=== PATIENT | male | born 1935 | race Caucasian/White ===

== ENCOUNTER 2017-02-13 14:20 | Inpatient (IN) | payer MEDICARE ==
[~2017-02-13] VITALS: Ht 188 cm; Wt 109.4 kg
[2017-02-13] MEDS ORDERED: IV NORMAL SALINE 1,000ML 1,000 ML IV SCH (14:39)
[2017-02-13 15:06] LABS: BASO # 0.1 x10^3/uL (0.0-0.2); BASO % 1 % (0-3); EOS % 0 % (0-3); HEMATOCRIT 42.2 % (39.0-53.0); HEMOGLOBIN 14.6 g/dL (13.0-17.5); LYMPH # 0.5 x10^3/uL (1.0-4.8); LYMPH % 4 % (24-48); MEAN CORPUSCULAR HEMOGLOBIN 34 pg (25-35); MEAN CORPUSCULAR HGB CONC 35 g/dL (31-37); MEAN CORPUSCULAR VOLUME 97 fL (79-100); MONO # 0.4 x10^3/uL (0.0-1.1); MONO % 3 % (0-9); NEUT # 12.9 x10^3uL (1.8-7.7); NEUT % 93 % (31-73); PLATELET COUNT 177 x10^3/uL (140-400); RED BLOOD COUNT 4.35 x10^6/uL (4.30-5.70); RED CELL DISTRIBUTION WIDTH 13.4 % (11.5-14.5); WHITE BLOOD COUNT 13.9 x10^3/uL (4.0-11.0)
--- NOTE | 2017-02-13 15:11 | RAD ---
Exam performed: 2 views chest. History: Hypoxia, fever and chills with weakness. Date of service: 02/13/17. Comparison: None available PA and lateral views chest findings: Heart size and mediastinal silhouette is within limits of normal. Pulmonary vascularity is unremarkable. There is fullness in the left hilar region probably prominent pulmonary artery or lymph node. Scattered infiltrates are seen in the left mid and right lower lung. No pleural effusion or pneumothorax. Impression: Scattered bilateral infiltrates. Follow-up exams may be obtained to complete resolution Fullness in the left hilar region may be related to prominent pulmonary artery or hilar lymph nodes/mass. Evaluation with CT of chest with contrast may be of additional benefit.
[2017-02-13] MEDS ORDERED: cefTRIAXone SODIUM 1 GM VIAL IV ONE (15:13)
[2017-02-13] MEDS ORDERED: IV NORMAL SALINE 50ML 50 ML ONE (15:13)
[2017-02-13] MEDS ORDERED: ONDANSETRON PF 4 MG/2 ML VIAL. IV ONE (15:20)
[2017-02-13] MEDS ORDERED: IPRATRPIUM/ALBUTEROL 0.5/2.5MG 3 ML NEBU. NEB ONE (15:20)
[2017-02-13] MEDS ORDERED: methylPREDNISolone SOD SUCC PF 125 MG/2 ML VIAL. IV ONE (15:20)
[2017-02-13] MEDS ORDERED: ACETAMINOPHEN 325 MG TABLET PO ONE (15:20)
[2017-02-13 15:26] LABS: ALBUMIN 3.7 g/dL (3.4-5.0); CALCIUM 8.8 mg/dL (8.5-10.1); DIRECT BILIRUBIN 0.3 mg/dL (0.0-0.2); GFR 72.1; POTASSIUM 4.2 mmol/L (3.5-5.1); TOTAL BILIRUBIN 0.8 mg/dL (0.2-1.0); TOTAL PROTEIN 7.2 g/dL (6.4-8.2)
[2017-02-13 15:29] LABS: BILIRUBIN,URINE NEG (NEG); CLARITY,URINE CLOUDY; COLOR,URINE YELLOW; GLUCOSE,URINE NEG (NEG)
[2017-02-13 15:30] LABS: BACTERIA,URINE MOD /HPF (0-FEW); NITRITE,URINE NEG (NEG); SQUAMOUS EPITHELIAL CELL,UR FEW /LPF; UROBILINOGEN,URINE 0.2 mg/dL (0.2 mg/dL); WBC,URINE >40 /HPF (0-4)
[2017-02-13] MEDS: IV NORMAL SALINE 1,000ML 1,000 ML IV SCH ×3 (15:56→23:48)
[2017-02-13] MEDS ORDERED: ACETAMINOPHEN 325 MG TABLET PO PRN (16:00)
[2017-02-13] MEDS: IPRATRPIUM/ALBUTEROL 0.5/2.5MG 3 ML NEBU. NEB SCH ×2 (16:00→19:31)
[2017-02-13] MEDS ORDERED: ONDANSETRON PF 4 MG/2 ML VIAL. IV PRN (16:00)
[2017-02-13] MEDS ORDERED: AZITHROMYCIN 500 MG in IV NORMAL SALINE 250ML 250 ML IV ONE (16:00)
[2017-02-13] MEDS ORDERED: IV NORMAL SALINE 250ML 250 ML ONE (16:02)
[2017-02-13] MEDS ORDERED: AZITHROMYCIN 500 MG VIAL. IV ONE (16:03)
--- NOTE | 2017-02-13 16:19 | PHYS DOC ---
General Chief Complaint: FLU SYMPTOM Stated Complaint: FLU SYMPTOMS Time Seen by MD: 14:39 Source: patient, EMS Exam Limitations: no limitations Problems: History of Present Illness Initial Comments Pt is 81/M to ED via EMS for fever/hypoxia. Pt states he's had a persistent dry cough for 2 months. Yesterday he developed dysuria, he's had decreased urination today. His called EMS today because he was weak, having chills, and appeared to be unsteady. EMS reports pt 86% RA when they arrived, improved to 92% on 3L NC. Pt denies CP, n/v, TRIMBLE, new leg swelling, focal neurologic deficit. ED VS: 100.5, 125, 20, 170/67, 92% 3L O2 NC. Timing/Duration: getting worse, changing over time, other Severity: severe Modifying Factors: worse with movement, improves with other Associated Symptoms: cough, diaphoresis, fever/chills, malaise, shortness of breath, weakness Allergies: Coded Allergies: No Known Drug Allergies (Unverified , 02/13/17) Past Medical History Medical History: GERD, high cholesterol, hypertension Surgical History: other (groin surgery) Social History Smoker: non-smoker Alcohol: occasionally Drugs: none Review of Systems Constitutional: see HPI EENTM: denies eye pain, denies ear pain, denies nose pain, denies throat pain Respiratory: see HPI Cardiovascular: denies chest pain, denies palpitations, denies syncope Gastrointestinal: denies abdominal pain, denies diarrhea, denies nausea, denies vomiting Genitourinary: see HPI Musculoskeletal: denies back pain, denies joint pain, denies joint swelling, denies muscle stiffness, denies neck pain Psychiatric/Neurological: denies headache, denies numbness, denies paresthesia Hematologic/Lymphatic: denies blood clots, denies easy bleeding, denies easy bruising Physical Exam General Appearance: WD/WN, no apparent distress Ear, Nose, Throat: hearing grossly normal, normal ENT inspection, normal pharynx Neck: non-tender, supple Respiratory: chest non-tender, respiratory distress, rales (scattered bilaterally) Cardiovascular: normal peripheral pulses, tachycardia Gastrointestinal: non tender, soft Back: no CVA tenderness, no vertebral tenderness Extremities: normal range of motion, non-tender, other (2+ pitting LE edema ( pt states it's baseline)) Neurologic/Psychiatric: audio/video technician II-XII nml as tested, no motor/sensory deficits, alert, normal mood/affect, oriented x 3 Skin: normal color, diaphoresis Orders, Labs, Meds EKG: sinus tachycardia 118 bpm, T contour abnormality no STEMI, Interpreted by me. PATIENT: GUERA KIMBROUGH ACCOUNT: [id number] : 1935 LOCATION: ER AGE: 81 SEX: M EXAM STATUS: REG ER ORD. PHYSICIAN: MCKENZIE ALEMAN DO REASON: hypoxia PROCEDURE: CHEST PA & LATERAL Exam performed: 2 views chest. History: Hypoxia, fever and chills with weakness. Date of service: 02/13/17. Comparison: None available PA and lateral views chest findings: Heart size and mediastinal silhouette is within limits of normal. Pulmonary vascularity is unremarkable. There is fullness in the left hilar region probably prominent pulmonary artery or lymph node. Scattered infiltrates are seen in the left mid and right lower lung. No pleural effusion or pneumothorax. Impression: Scattered bilateral infiltrates. Follow-up exams may be obtained to complete resolution Fullness in the left hilar region may be related to prominent pulmonary artery or hilar lymph nodes/mass. Evaluation with CT of chest with contrast may be of additional benefit. DICTATED AND SIGNED BY: BARRNO GALAN MD DATE: 02/13/17 1506 CC: MCKENZIE ALEMAN DO; NGUYỄN MAY MD ~ WBC 13.9, lactic acid 1.8, UA grossly + Pt received duoneb, solumedrol 125mg IV, NS 1L bolus, rocephin 1gIV, zithromax 500mg IV. 1605: Dr Ortiz accepts inpatient telemetry admission for IV hydration/ antibiotics and respiratory support. D-dimer 1.25, CTA chest indicated will complete prior to transfer to inpatient. IMPRESSIONS: Respiratory Distress Multilobar Pneumonia UTI SIRS/Sepsis Elevated d-dimer Departure Disposition: ADMITTED INPATIENT Diagnosis: Resp Distress, Pneumonia, UTI, SIRS/Sepsis Condition: STABLE MCKENZIE ALEMAN DO Feb 13, 2017 16:19
[2017-02-13] MEDS ORDERED: AZITHROMYCIN 500 MG in IV NORMAL SALINE 250ML 250 ML IV SCH (16:30)
[2017-02-13] MEDS ORDERED: IOHEXOL 300 MG/ML 75 ML VIAL. IV ONE (16:30)
--- NOTE | 2017-02-13 17:01 | RAD ---
CT Pulmonary arteriogram: Indication:Tachycardia, abnormal chest x-ray, elevated d-dimer, hypoxia Date of Exam:02/13/17 . Comparison:2 views chest from earlier today Technique: Contiguous helical acquisitions are obtained through the chest during intravenous administration of 75 cc Omnipaque 300 . Coronal and sagittal MIP images were obtained and reviewed. Findings: The pulmonary arteries are fairly well-opacified. Questionable filling defect is seen in the left inferior descending branch (best seen on coronal image 68, series 5). No hilar or mediastinal abnormalities are noted. No pericardial pathology is noted and the aorta appears unremarkable. Prominent interstitial markings are seen in both lung bases with a streaky linear opacity in the right upper lobe probably atelectasis or scarring. The pleural surfaces are smooth and no pleural fluid is seen. Low attenuating abnormality in the right kidney. Impression: 1. Questionable linear filling defect in the descending branch of the right pulmonary artery. If symptoms persist, a follow-up CT angiogram may be obtained. 2. Low attenuating abnormality in the right kidney perhaps a cyst. Evaluation with renal ultrasound may be of additional benefit. 3. Bibasal atelectasis and scarring PQRS Compliance Statement: One or more of the following individualized dose reduction techniques were utilized for this examination: 1. Automated exposure control 2. Adjustment of the mA and/or kV according to patient size 3. Use of iterative reconstruction technique
--- NOTE | 2017-02-13 17:41 | EKG ---
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
[2017-02-13] MEDS: methylPREDNISolone SOD SUCC PF 125 MG/2 ML VIAL. IV SCH ×2 (18:00→23:48)
[2017-02-13 18:16] VITALS: BP 118/76
[2017-02-13 19:15] VITALS: BP 107/68
[2017-02-13] MEDS ORDERED: FLUT9.9S NS (19:56)
[2017-02-13] MEDS ORDERED: LOVA40TA2 PO (19:56)
[2017-02-13] MEDS ORDERED: LISI10TA2 PO (19:56)
[2017-02-13] MEDS ORDERED: LEVO5TAB2 PO (19:56)
[2017-02-13] MEDS ORDERED: ESOM40CA PO (19:56)
[2017-02-13 20:16] LABS: INFLUENZA A PATIENT NEGATIVE (NEGATIVE); INFLUENZA B PATIENT NEGATIVE (NEGATIVE)
[2017-02-13] MEDS: ENOXAPARIN ** NOTE DOSE ** SYRINGE SQ SCH (20:17)
[2017-02-13] MEDS: ATORVASTATIN CALCIUM 10 MG TABLET. PO SCH (20:17)
[2017-02-13 22:45] VITALS: BP 139/78
[2017-02-14] MEDS: IV NORMAL SALINE 1,000ML 1,000 ML IV SCH ×3 (03:13→11:56)
[2017-02-14 03:27] LABS: BASO % 0 % (0-3); EOS # 0.1 x10^3/uL (0.0-0.7); EOS % 0 % (0-3); HEMATOCRIT 38.8 % (39.0-53.0); HEMOGLOBIN 13.4 g/dL (13.0-17.5); LYMPH # 0.8 x10^3/uL (1.0-4.8); LYMPH % 4 % (24-48); MEAN CORPUSCULAR HEMOGLOBIN 34 pg (25-35); MEAN CORPUSCULAR HGB CONC 34 g/dL (31-37); MEAN CORPUSCULAR VOLUME 99 fL (79-100); MONO # 0.3 x10^3/uL (0.0-1.1); MONO % 1 % (0-9); NEUT # 18.9 x10^3uL (1.8-7.7); NEUT % 94 % (31-73); PLATELET COUNT 172 x10^3/uL (140-400); RED BLOOD COUNT 3.93 x10^6/uL (4.30-5.70); RED CELL DISTRIBUTION WIDTH 13.7 % (11.5-14.5); WHITE BLOOD COUNT 20.1 x10^3/uL (4.0-11.0)
[2017-02-14 03:37] LABS: % BANDS 16 % (0-9); % LYMPHS 6 % (24-48); % MONOS 2 % (0-10); % SEGS 76 % (35-66); PLT ESTIMATE ADEQUATE (ADEQUATE)
[2017-02-14 03:39] LABS: CREATININE 1.1 mg/dL (0.7-1.3); GFR 64.6; POTASSIUM 4.2 mmol/L (3.5-5.1)
[2017-02-14] MEDS: methylPREDNISolone SOD SUCC PF 125 MG/2 ML VIAL. IV SCH ×2 (05:39→12:14)
[2017-02-14 05:45] VITALS: BP 135/75
[2017-02-14] MEDS: PANTOPRAZOLE 40 MG TABLET. PO SCH (07:55)
[2017-02-14] MEDS: CETIRIZINE HCL 10 MG TABLET PO SCH (07:56)
[2017-02-14] MEDS: FLUTICASONE 50MCG/NASAL SPRAY 16GM BOTTLE. NS SCH (07:57)
[2017-02-14] MEDS: ENOXAPARIN ** NOTE DOSE ** SYRINGE SQ SCH ×2 (07:57→19:44)
[2017-02-14] MEDS: IPRATRPIUM/ALBUTEROL 0.5/2.5MG 3 ML NEBU. NEB SCH ×2 (08:00→13:09)
[2017-02-14] MEDS ORDERED: FLU VACC QS2017-18 (36MOS+)/PF 0.5 ML SYRINGE. VAX IM ONE (09:00)
[2017-02-14 09:45] VITALS: BP 138/71
[2017-02-14 11:00] VITALS: BP 139/82
[2017-02-14] MEDS ORDERED: LISINOPRIL 10 MG TABLET PO SCH (12:00)
--- NOTE | 2017-02-14 13:52 | HP ---
ADMIT DATE: 02/13/2017 HISTORY OF PRESENT ILLNESS: The patient is a 81-year-old male patient who came to the Emergency Room complaining of a persistent dry cough for 2 months, also developed dysuria and decreased urination and he called emergency medical services because he was weak, having chills. Unsteady in the Emergency Room, he was found to be hypoxic with an oxygen saturation of 86% on room air on arrival that improved to 92% on 3 liters of oxygen. On questioning him further, he denied any chest pain, shortness of breath, headache, swelling of the legs. He was extensively investigated and was diagnosed with scattered bilateral infiltrate, has also fullness in the left hilar region, may be related to prominent pulmonary artery or hilar lymph nodes or masses. Evaluation with a CT of the chest with contrast may be of additional value. His lab work showed that he has leukocytosis and his D-dimer was found to be high at 1.24 and therefore, he had a CT scan of the chest with PE protocol, which showed that there is a question of linear filling defects in the descending branch of the left pulmonary artery; if symptoms persist, followup CT angiogram may be obtained low attenuating. No hilar or mediastinal abnormalities are noted. No pericardial pathology is noted and she has had bilateral atelectasis and scarring. The patient was admitted with community-acquired pneumonia, pulmonary embolism. His urinalysis was also consistent with urinary tract infection and therefore was admitted also with an UTI. He was started on IV fluid, IV antibiotic in the form of Rocephin and Zithromax as well as Lovenox and was admitted for further evaluation and treatment. PAST MEDICAL HISTORY: Significant for hypertension, hyperlipidemia, osteoarthritis, chronic sinusitis, rosacea and rhinophyma. PAST SURGICAL HISTORY: Significant for right rotator cuff tear repair, umbilical hernia repair, hydrocele, bilateral cataract extraction, tonsillectomy, rhinophyma treatment with laser and colonoscopy as well as esophagogastroduodenoscopy. ALLERGIES: She has no known drug allergies. MEDICATIONS: He is currently on Nexium 40 mg daily, Flonase 2 sprays to each nostril once a day, levocetirizine dihydrochloride 5 mg once a day, lisinopril 10 mg once a day, lovastatin 40 mg at bedtime. FAMILY HISTORY: He has one brother, older and at age of 49 because of myocardial infarction. His mother at the age of 68 because of leukemia. Father at the age of 82 because of stroke. SOCIAL HISTORY: He is , has 1 daughter. He quit smoking 30 years ago; however, he started smoking when he was 13 years old and probably smoked for 30 years. Drinks alcohol occasionally. He is retired from [employer] after working there for 40 years. REVIEW OF SYSTEMS: The patient denied any blurring of vision, but has had bilateral cataract extraction and intraocular implants, denied any glaucoma or macular degeneration. 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 Denied any nosebleeds, stuffy nose or postnasal drip. Denied any sore throat, sore tongue, toothache, hoarseness of voice or difficulty swallowing. Denied any nausea, vomiting, diarrhea or constipation. Denied any hematemesis, melena or hematochezia. Denied any dysuria, frequency or hematuria. Denied any chest pain. Did complain of shortness of breath, cough, which is mostly dry. Denied any phlegm or hemoptysis. He did complain of chills, but no fever. PHYSICAL EXAMINATION: GENERAL: On arrival to the Emergency Room, he was somewhat tachypneic, tachycardic, hypoxic. His saturation was only 84% on room air. His heart rate was 125, blood pressure was 113/66, temperature was 100.5, respiratory rate was 20, and oxygen saturation was 92% on 3 liters of oxygen. HEAD: Showed normocephalic, atraumatic. NECK: Supple. HEART: Showed normal first and second heart sounds with no gallop, rub or murmur. CHEST: Clear to auscultation. No crepitation or rhonchi. ABDOMEN: Distended, soft, nontender. NEUROLOGIC: He was awake, alert, responding appropriately. Cranial nerves intact. EXTREMITIES: She moves extremities without difficulty, ambulates without assistance or assistive devices. LABORATORY DATA: Showed a white cell count of 13,900, hemoglobin 14.6, hematocrit 42, MCV 97 and platelet count of 177,000. His chemistry showed a serum sodium of 137, potassium 4.2, chloride 103, bicarbonate 26, anion gap of 8, BUN 17, creatinine 1, estimated GFR was 72 mL per minute. His glucose was 130, calcium was 8.8. Total bilirubin, AST, ALT, alkaline phosphatase were normal. Total protein was 7.2, albumin was 3.7. His D-dimer was 1.24. Urinalysis showed the urine was yellow, cloudy with a pH of 6, specific gravity of 1.015. The urine was negative for protein, glucose. There was a trace of ketones, small amount of blood, negative for nitrite, small amount of leukocyte esterase. There were 6-10 rbc's, more than 40 wbc's, moderate amount of bacteria. His influenza A and B were negative. He has a chest x-ray, which showed that the heart size and mediastinal silhouette within normal limits. Pulmonary vascularity is unremarkable. There is fullness in the left hilar region, probably prominent pulmonary artery or lymph node; scattered infiltrates are seen in the left mid and right lower lobe, no pleural effusion or pneumothorax. Given his elevated D-dimer, he has a CT scan of the chest with PE protocol, which showed the pulmonary arteries are fairly well opacified, questionable filling defects seen in the left anterior descending branch, best seen on the coronary images. No hilar or mediastinal abnormalities are noted. No pericardial pathology is noted. Aorta appears unremarkable. Prominent interstitial markings are seen in both lung bases with streaky linear opacity in the right upper lobe, probably atelectasis or scarring. The dorsal surfaces are smooth. There is no pleural fluid is seen. Low-attenuating abnormality in the right kidney. IMPRESSION AND PLAN: The patient was admitted with community-acquired pneumonia, pulmonary embolism as well as urinary tract infection. He was started on IV ceftriaxone as well as Zithromax, started on Lovenox 1 mg/kg twice a day and continued on all his medication. He was also given large doses of steroids and IV fluid. JOAN RUTH MD DR: ROCHELLE/nurys JOB#: [id number] / [id number]
[2017-02-14] MEDS ORDERED: AZITHROMYCIN 500 MG in IV NORMAL SALINE 250ML 250 ML IV SCH (16:00)
[2017-02-14 16:45] VITALS: BP 131/71
[2017-02-14] MEDS: ATORVASTATIN CALCIUM 10 MG TABLET. PO SCH (19:43)
[2017-02-14 20:00] VITALS: BP 131/64
[2017-02-14] MEDS ORDERED: TEMAZEPAM 15 MG CAPSULE PO PRN (20:00)
--- NOTE | 2017-02-15 00:45 | PN ---
DATE: 02/14/2017 SUBJECTIVE: The patient is resting, slightly propped up in bed, in no apparent distress. He is awake, alert. On questioning him, he is feeling generally much better. He continued to have cough, which is mostly dry; however, he denied any fever, chills, rigors. Denied any phlegm or hemoptysis. PHYSICAL EXAMINATION: GENERAL: On examining him, he looked well and was clearly in no apparent respiratory distress. No pallor, jaundice, cyanosis or thyromegaly. No jugular venous distention. No limb edema. VITAL SIGNS: His heart rate was 108, blood pressure was 107/68, temperature was 98.6, respiratory rate 20 and oxygen saturation was 94% on 3 liters of oxygen. HEAD, EYES, EARS, NOSE AND THROAT: Showed normocephalic, atraumatic. NECK: Supple. HEART: Showed normal first and second heart sounds with no gallop, rub or murmur. CHEST: Clear to auscultation. No crepitation or rhonchi. ABDOMEN: Distended, soft, nontender. No guarding or rigidity. No organomegaly. Hernial orifices intact. Bowel sounds normal. NEUROLOGIC: He was awake, alert, responding appropriately. Cranial nerves intact. He moves extremities without difficulty, ambulates without assistance or assistive devices. His intake over the last 24 hours was 4128, output 3700. LABORATORY DATA: This morning showed that his white cell count was 20,000, hemoglobin 13.4, hematocrit 38.8, MCV 99 and platelet count of 172,000. His chemistry showed a serum sodium 139, potassium 4.2, chloride 106, bicarbonate 24, anion gap of 9, BUN 15, creatinine 1.1. Estimated GFR was 65 mL per minute. His glucose was 200 and calcium was 8. Two sets of cardiac enzymes are so far negative. ASSESSMENT: 1. Community-acquired pneumonia. 2. Urinary tract infection. 3. Pulmonary embolism. 4. Hypertension. 5. Hyperlipidemia. 6. Osteoarthritis. 7. Chronic sinusitis. PLAN: My plan is to cut down in steroids to 40 mg twice a day. Continue with IV Rocephin as well as Zithromax. His urine showed a growth of more than 100,000 colony forming units per mL of gram-negative rods. The identification and sensitivity is still pending. We will continue with IV fluids. We will continue with IV antibiotic. Continue with Lovenox. We will probably have to switch him to Xarelto or Eliquis tomorrow. He feels much better. We will discharge him home. I feel that his cough might be also induced by the SONAL inhibitors as he is already on lisinopril. I will switch that to an ARB to see if that will help his cough. JOAN RUTH MD DR: ROCHELLE/nurys JOB#: [id number] / [id number]
[2017-02-15 06:05] LABS: HEMATOCRIT 38.1 % (39.0-53.0); RED BLOOD COUNT 3.88 x10^6/uL (4.30-5.70); RED CELL DISTRIBUTION WIDTH 13.4 % (11.5-14.5); WHITE BLOOD COUNT 20.7 x10^3/uL (4.0-11.0)
[2017-02-15 06:14] LABS: ALBUMIN 3.1 g/dL (3.4-5.0); ALBUMIN/GLOBULIN RATIO 0.9 (1.0-1.7); CALCIUM 7.9 mg/dL (8.5-10.1); CREATININE 0.9 mg/dL (0.7-1.3); GFR 81.4; POTASSIUM 4.4 mmol/L (3.5-5.1); TOTAL BILIRUBIN 0.3 mg/dL (0.2-1.0); TOTAL PROTEIN 6.6 g/dL (6.4-8.2)
[2017-02-15 06:30] VITALS: BP 142/85
[2017-02-15] MEDS: FLUTICASONE 50MCG/NASAL SPRAY 16GM BOTTLE. NS SCH (07:22)
[2017-02-15] MEDS: ENOXAPARIN ** NOTE DOSE ** SYRINGE SQ SCH (07:23)
[2017-02-15] MEDS: CETIRIZINE HCL 10 MG TABLET PO SCH (07:23)
[2017-02-15] MEDS: PANTOPRAZOLE 40 MG TABLET. PO SCH (07:23)
[2017-02-15] MEDS ORDERED: methylPREDNISolone SOD SUCC PF 40 MG/ML VIAL. IV SCH ×2 (09:00)
[2017-02-15] MEDS ORDERED: LOSARTAN 50 MG TABLET. PO SCH (09:00)
[2017-02-15] MEDS: IPRATRPIUM/ALBUTEROL 0.5/2.5MG 3 ML NEBU. NEB SCH ×2 (09:26→14:50)
[2017-02-15] MEDS ORDERED: FLU VACC QS2017-18 (36MOS+)/PF 0.5 ML SYRINGE. VAX IM ONE (13:00)
[2017-02-15] MEDS ORDERED: CEFP200T PO (13:10)
[2017-02-15] MEDS ORDERED: AZIT250T PO (13:10)
[2017-02-15] MEDS ORDERED: LOSA100T6 PO (13:10)
[2017-02-15 14:34] VITALS: BP 140/76
[2017-02-15] MEDS ORDERED: FLUTICASONE 50MCG/NASAL SPRAY 16GM BOTTLE. NS SCH (15:10)
--- NOTE | 2017-02-15 22:23 | DS ---
DATE OF DISCHARGE: 02/15/2017 HOSPITAL COURSE: The patient is a 81-year-old male patient who was admitted with a complaint of dry persistent cough for 2 months. He also developed dysuria and decreased urination and has called emergency services, medical services. He was weak and having chills. Upon evaluation in the Emergency Room, he was found to be hypoxic with an oxygen saturation was 86% on room air, that has improved to 92% on 3 liters of oxygen; however, he denied any chest pain, shortness of breath, headache, swelling of the legs, and has had a CT scan of the chest with contrast and his D-dimer was high and he showed that there is a questionable linear filling defects in the descending branch of the left pulmonary artery and I did actually speak with Dr. Cerda, the radiologist for a second opinion and his reading is that he could not really confirm any pulmonary embolus in that artery and his x-ray showed that he has some scattered bilateral infiltrate and fullness in the left hilar region, which was not confirmed by the CT scan. He was basically admitted with community-acquired pneumonia, questionable pulmonary embolism and a urinary tract infection. His urine has grown more than 100,000 colony forming units per mL of Gram-negative rods. The identification and sensitivity, which is still pending at the time of this dictation; however, the patient clinically is responding. He was given large doses of steroids and certainly he is not known to have any of chronic obstructive pulmonary disease and actually cut down his steroids. His white cell count continued to be slightly elevated. PHYSICAL EXAMINATION: GENERAL: When I saw him today, he looked well and was clearly in no apparent respiratory distress, pale, not jaundiced, cyanosis or thyromegaly. No jugular venous distention. No lower limb edema. VITAL SIGNS: Her heart rate was 85, blood pressure 142/85, temperature was 97.7, respiratory rate was 20, and oxygen saturation was 95% on 3 liters of oxygen. HEAD, EYES, EARS, NOSE AND THROAT: Showed normocephalic, atraumatic. NECK: Supple. HEART: Showed normal first and second heart sounds. No gallop, rub or murmur. CHEST: Clear to auscultation. No crepitation or rhonchi. ABDOMEN: Distended, soft, nontender. No guarding or rigidity. No organomegaly. Hernial orifices intact. Bowel sounds normal. NEUROLOGIC: He was awake, alert, responding appropriately. Cranial nerves intact. He moves extremities without difficulty, ambulates without assistance or assistive devices. His intake over the last 24 hours was 2438. Output was 2600. LABORATORY DATA: Showed a white cell count of 20,700, hemoglobin 13, hematocrit 38, MCV was 98 and platelet count of 178,000. His chemistry showed a serum sodium 139, potassium 4.4, chloride 107, bicarbonate 26, anion gap of 6, BUN 19, creatinine 0.9, estimated GFR was 81 mL per minute. His glucose was 153, calcium was 7.9. Total bilirubin, AST, ALT, alkaline phosphatase were normal. Total protein 6.6, albumin 3.1. His D-dimer was high at 1.25, 1.24. Urinalysis showed the urine was yellow, cloudy with more than 40 WBCs, moderate amount of bacteria. His influenza A and B were negative. His nasal screen for MRSA with PCR was negative. DISCHARGE MEDICATIONS: The patient will be discharged home to continue on following medications: Nexium 40 mg once a day, Flonase 2 sprays to each nostril once a day, levocetirizine dihydrochloride 5 mg once a day, Lovastatin 40 mg at bedtime, I switched his lisinopril to losartan 100 mg once a day and will be discharged on Vantin 200 mg twice a day for 7 days, Zithromax 250 mg once a day. FINAL DISCHARGE DIAGNOSES: 1. Community-acquired pneumonia. 2. Urinary tract infection. 3. Hypertension. 4. Hyperlipidemia. 5. Seasonal allergies. JOAN RUTH MD DR: ROCHELLE/nurys JOB#: [id number] / [id number]
== END 2017-02-15 15:17 | disposition home or self-care (01) | DRG 871 ==
LOC: ER 14:20 → ICU 16:00
PROVIDERS: ADMIT Internal Medicine; ATTEND Internal Medicine
DX: A41.9 Sepsis, unspecified organism (principal); J18.9 Pneumonia, unspecified organism; N39.0 Urinary tract infection, site not specified; J98.11 Atelectasis; I10 Essential (primary) hypertension; E78.00 Pure hypercholesterolemia, unspecified; E78.5 Hyperlipidemia, unspecified; J30.2 Other seasonal allergic rhinitis; J32.9 Chronic sinusitis, unspecified; B96.89 Other specified bacterial agents as the cause of diseases classified elsewhere; K21.9 Gastro-esophageal reflux disease without esophagitis; M19.90 Unspecified osteoarthritis, unspecified site; R09.02 Hypoxemia; Z80.6 Family history of leukemia; Z82.3 Family history of stroke; Z98.41 Cataract extraction status, right eye; Z98.42 Cataract extraction status, left eye; Z90.89 Acquired absence of other organs; Z87.891 Personal history of nicotine dependence; Z23 Encounter for immunization
CPT/HCPCS: 36415; 71020; 71275; 80048; 80053; 80076; 81001; 83605; 83880; 84484; 85007; 85025; 85027; 85379; 87070; 87086; 87186; 87205; 87641; 87804; 90686; 93005; 94620; 94640; 96365; 96375; J0456; J0696; J1650; J2405; J2920; J2930; J7050; J7620; Q9967; 99285-25; J7030